=== PATIENT | male | born 1965 | race Caucasian/White ===

== ENCOUNTER 2016-08-20 11:36 | Emergency (ER) | payer OTHER, SELFPAY | END 2016-08-20 12:35 | disposition home or self-care (01) | LOC: MADERS 11:36 | DX: M54.5 Low back pain (principal) | CPT/HCPCS: 99283 ==

== ENCOUNTER 2025-02-05 14:01 | Emergency (ER) | payer OTHER, SELFPAY ==
[2025-02-05] MEDS ORDERED: Ketorolac Tromethamine 30 MG (1 mL) VIAL ONE (14:59)
[2025-02-05] MEDS ORDERED: Dexamethasone 10 MG/ML VIAL ONE (14:59)
== END 2025-02-05 15:11 | disposition home or self-care (01) ==
LOC: MADERS 14:01
DX: M10.9 Gout, unspecified (principal); E66.9 Obesity, unspecified
CPT/HCPCS: 99283; J1100; J1885